=== PATIENT | male | born 1950 | race Caucasian/White ===

== ENCOUNTER 2017-05-11 23:26 | Inpatient (IN) | payer OTHER ==
[~2017-05-11] VITALS: Ht 167.6 cm; Wt 115.2 kg
[~2017-05-11 23:26] MED LIST: ALLOPURINOL300 MG PO; AMLODIPINE BESYL5 MG PO; CRESTOR20 MG PO; ECOTRIN325 MG PO; GLYBURIDE5 MG PO; HYDROCHLOROTHIA25 MG PO; LANTUS 10100 UNITS/ SC; LANTUS 3 M100 UNITS1 SC; LISINOPRIL40 MG PO; LOPRESSOR100 M1 PO; MECLIZINE HCL25 MG PO
[2017-05-12] VITALS (18 sets, daily range): BP systolic 85–127; BP diastolic 46–77
[2017-05-12 00:07] LABS: HEMATOCRIT 56.6 % (38.0-50.0); MCH 31.1 PG (29.0-34.0); MCHC 33.7 G/DL (30.0-36.0); MEAN PLAT.VOLUME 11.2 uM^3 (9.0-12.4); PLATELET COUNT 199 K/uL (156-360); RBC DIS.WIDTH-CV 13.8 % (11.8-14.6); RBC DIS.WIDTH-SD 46.7 % (39-53); RED BLOOD COUNT 6.15 M/uL (4.00-5.50)
[2017-05-12 00:18] LABS: CHLORIDE 105 mEq/L (99-109); SODIUM 146 mEq/L (136-147)
[2017-05-12 00:20] LABS: GLUCOSE 97 mg/dL (70-99)
[2017-05-12 00:21] LABS: ANION GAP 14 MEQ/L (2-14)
[2017-05-12 00:24] LABS: GFR ESTIMATE (CALCULATED) 54 mL/min/
[2017-05-12 00:25] LABS: UREA NITROGEN (BUN) 19 mg/dL (9-23)
[2017-05-12 00:29] LABS: TROP-I INTERPRETATION NEGATIVE; TROPONIN-I 0.01 ng/mL (0.0-0.30)
[2017-05-12] MEDS ORDERED: PREDNISONE20 MG PO (02:11)
[2017-05-12] MEDS ORDERED: KEFLEX500 MG PO (02:11)
[2017-05-12 05:11] LABS: BASE EXCESS 0.2 mEq/L (-3 to +3); BICARBONATE 25.4 mEq/L (22-26); CARBOXY HGB 1.8 % (0-5); METHEMOGLOBIN 1.3 % (0-1.5); PCO2 42 mm Hg (35-45); PO2 137 mm Hg (80-100); pH 7.39 (7.35-7.45)
[2017-05-12 05:12] LABS: COMMENTS - BLOOD GASES A+C+; DEVICE 840; FI02 60 %; MECHANICAL RATE 16 resp/min; MODE AC; PEEP 5 CM/H20; SITE LR; TIDAL VOLUME 500 ML; TOTAL RESP RATE 20 resp/min
[2017-05-12 09:46] LABS: POINT-OF-CARE METER ID UU13113731
[2017-05-12 10:09] LABS: METH RESISTANT S AUREUS PCR NEGATIVE (NEGATIVE); PROBE CHECK PASS; SPECIMEN PROCESSING CONTROL PASS
[2017-05-12 10:18] LABS: ADD MIUA? YES; BILIRUBIN NEGATIVE; BLOOD MODERATE; COLOR YELLOW ((YELLOW)); GLUCOSE (STRIP) 150; KETONES 5; LEUKOCYTES NEGATIVE; NITRITE NEGATIVE; PROTEIN (STRIP) >=500; SPECIFIC GRAVITY 1.035 (1.000-1.030); UROBILINOGEN 0.2 MG/DL (0.2-1.0)
[2017-05-12] MEDS ORDERED: AZITHROMYCIN250 MG PO (10:25)
[2017-05-12] MEDS ORDERED: ROSUVASTATIN CA20 MG PO (10:25)
[2017-05-12] MEDS ORDERED: BYSTOLIC10 MG PO (10:57)
[2017-05-12] MEDS ORDERED: ALLOPURINOL300 MG PO (10:58)
[2017-05-12] MEDS ORDERED: TRESIBA FL100 UNIT/1 SC (10:59)
[2017-05-12] MEDS ORDERED: ZYRTEC10 M2 PO (11:00)
[2017-05-12] MEDS ORDERED: ASPIR 8181 M1 PO (11:00)
[2017-05-12] MEDS ORDERED: DOXAZOSIN MESYLA2 MG PO (11:00)
[2017-05-12] MEDS ORDERED: GLIMEPIRIDE4 MG PO (11:01)
[2017-05-12] MEDS ORDERED: LOSARTAN POTASS50 MG PO (11:01)
[2017-05-12 11:02] LABS: EOSINOPHIL (%) 0.1 % (0-5); HEMATOCRIT 53.3 % (38.0-50.0); IMMATURE GRANULOCYTE (%) 0.2 % (0.0-0.7); INSTRUMENT ABS NEUTROPHIL CT 14.6 K/uL; LYMPHOCYTE COUNT 0.5 K/uL (1.0-2.8); MCH 31.4 PG (29.0-34.0); MONOCYTE (%) 6.7 % (3-12); MONOCYTE COUNT 1.1 K/uL (0-0.8); NEUTROPHIL (%) 89.7 % (45-76); NEUTROPHIL COUNT 14.6 K/uL (1.8-6.4); RBC DIS.WIDTH-CV 14.2 % (11.8-14.6); RBC DIS.WIDTH-SD 49.3 % (39-53); RED BLOOD COUNT 5.61 M/uL (4.00-5.50); WHITE BLOOD COUNT 16.3 K/uL (4.1-10.2)
[2017-05-12] MEDS ORDERED: LISINOPRIL40 MG PO (11:02)
[2017-05-12] MEDS ORDERED: HYDROCHLOROTHIA25 MG PO (11:02)
[2017-05-12 11:04] LABS: MEAN PLAT.VOLUME 11.4 uM^3 (9.0-12.4); PLATELET COUNT 174 K/uL (156-360)
[2017-05-12 11:25] LABS: ALKALINE PHOSPHATASE 58 IU/L (3-129); ANION GAP 11 MEQ/L (2-14); CHLORIDE 105 MEQ/L (99-109); GFR ESTIMATE (CALCULATED) 40 mL/min/; MAGNESIUM 1.8 mg/dl (1.3-2.7); POTASSIUM 4.1 MEQ/L (3.7-5.4); SAMPLE HEMOLYSIS CHECK 0; SAMPLE ICTERIC CHECK 0; SAMPLE LIPEMIA CHECK 0; SODIUM 141 MEQ/L (136-147); UREA NITROGEN (BUN) 25 mg/dL (9-23)
[2017-05-12 11:28] LABS: EPITHELIAL CELLS 1+ /HPF; RED BLOOD CELLS TNTC /HPF (0-5)
[2017-05-12 11:29] LABS: AMORPHOUS URATES CRYSTALS 2+; BACTERIA 2+ /HPF; CASTS NONE SEEN /LPF; CRYSTALS PRESENT; MUCUS 1+ /LPF; UCUL ADDED? YES
[2017-05-12 11:36] LABS: GLUCOSE 208 mg/dL (70-99)
[2017-05-12] MEDS ORDERED: TRULICITY1.5 MG/0.5 SC (13:57)
[2017-05-12 16:47] LABS: UR CREATININE CONCENTRATION 220.4 MG/DL
[2017-05-12 17:18] LABS: ANION GAP 10 MEQ/L (2-14); CHLORIDE 107 MEQ/L (99-109); GFR ESTIMATE (CALCULATED) 43 mL/min/; GLUCOSE 273 mg/dL (70-99); POTASSIUM 4.1 MEQ/L (3.7-5.4); SAMPLE HEMOLYSIS CHECK 0; SAMPLE ICTERIC CHECK 0; SAMPLE LIPEMIA CHECK 0; SODIUM 141 MEQ/L (136-147); UREA NITROGEN (BUN) 33 mg/dL (9-23)
[2017-05-12 17:43] LABS: Estimated Average Glucose 189 mg/dL (70-123); HEMOGLOBIN A1c (GLYCOHEMOGLOB) 8.2 % HGB (Below 5.7)
[2017-05-13] VITALS (23 sets, daily range): BP systolic 101–147; BP diastolic 54–80
[2017-05-13 00:45] LABS: EOSINOPHIL (%) 0 % (0-5); HEMATOCRIT 44.7 % (38.0-50.0); IMMATURE GRANULOCYTE (%) 0.4 % (0.0-0.7); IMMATURE GRANULOCYTE COUNT 0.1 K/uL; INSTRUMENT ABS NEUTROPHIL CT 11.2 K/uL; LYMPHOCYTE COUNT 0.7 K/uL (1.0-2.8); MCH 30.9 PG (29.0-34.0); MCHC 32.9 G/DL (30.0-36.0); MCV 94.1 FL (86-99); MEAN PLAT.VOLUME 11.1 uM^3 (9.0-12.4); MONOCYTE (%) 8.5 % (3-12); MONOCYTE COUNT 1.1 K/uL (0-0.8); NEUTROPHIL (%) 85.4 % (45-76); NEUTROPHIL COUNT 11.2 K/uL (1.8-6.4); PLATELET COUNT 148 K/uL (156-360); RBC DIS.WIDTH-CV 13.8 % (11.8-14.6); RBC DIS.WIDTH-SD 48.1 % (39-53); RED BLOOD COUNT 4.75 M/uL (4.00-5.50); WHITE BLOOD COUNT 13.1 K/uL (4.1-10.2)
[2017-05-13 00:46] LABS: CHLORIDE 112 mEq/L (99-109); MAGNESIUM 1.8 mg/dL (1.3-2.7); POTASSIUM 4.1 mEq/L (3.7-5.4); SODIUM 142 mEq/L (136-147)
[2017-05-13 00:48] LABS: GLUCOSE 212 mg/dL (70-99)
[2017-05-13 00:49] LABS: ANION GAP 8 MEQ/L (2-14)
[2017-05-13 00:52] LABS: GFR ESTIMATE (CALCULATED) 49 mL/min/; UREA NITROGEN (BUN) 37 mg/dL (9-23)
[2017-05-13 05:57] LABS: POINT-OF-CARE METER ID UU13113731
[2017-05-13 06:16] LABS: BASE EXCESS -0.2 mEq/L (-3 to +3); BICARBONATE 24.8 mEq/L (22-26); CARBOXY HGB 2.3 % (0-5); COMMENTS - BLOOD GASES C+; DEVICE VENT; FI02 40 %; METHEMOGLOBIN 1.7 % (0-1.5); MODE SPON; PCO2 41 mm Hg (35-45); PEEP 10 CM/H20; PO2 72 mm Hg (80-100); PRES. SUPPORT 10 CM/H2O; SITE LB; TOTAL RESP RATE 15 resp/min; pH 7.39 (7.35-7.45)
[2017-05-13 14:16] LABS: POINT-OF-CARE METER ID UU13113731
[2017-05-13 15:48] LABS: ANION GAP 6 MEQ/L (2-14); CHLORIDE 113 MEQ/L (99-109); GFR ESTIMATE (CALCULATED) 58 mL/min/; GLUCOSE 168 mg/dL (70-99); POTASSIUM 4.3 MEQ/L (3.7-5.4); SAMPLE HEMOLYSIS CHECK 0; SAMPLE ICTERIC CHECK 0; SAMPLE LIPEMIA CHECK 0; SODIUM 143 MEQ/L (136-147); UREA NITROGEN (BUN) 36 mg/dL (9-23)
[2017-05-13 17:41] LABS: POINT-OF-CARE METER ID UU13113731
[2017-05-13 21:42] LABS: POINT-OF-CARE METER ID UU14174217
[2017-05-14] VITALS (26 sets, daily range): BP systolic 118–207; BP diastolic 57–112
[2017-05-14 02:51] LABS: POINT-OF-CARE METER ID UU13113748
[2017-05-14 06:11] LABS: EOSINOPHIL (%) 0 % (0-5); HEMATOCRIT 47.3 % (38.0-50.0); IMMATURE GRANULOCYTE (%) 0.3 % (0.0-0.7); INSTRUMENT ABS NEUTROPHIL CT 8.1 K/uL; LYMPHOCYTE COUNT 0.5 K/uL (1.0-2.8); MCH 31.3 PG (29.0-34.0); MCHC 33.2 G/DL (30.0-36.0); MCV 94.4 FL (86-99); MEAN PLAT.VOLUME 11.4 uM^3 (9.0-12.4); MONOCYTE (%) 3.6 % (3-12); MONOCYTE COUNT 0.3 K/uL (0-0.8); NEUTROPHIL (%) 90.7 % (45-76); NEUTROPHIL COUNT 8.1 K/uL (1.8-6.4); PLATELET COUNT 180 K/uL (156-360); RBC DIS.WIDTH-CV 14.1 % (11.8-14.6); RBC DIS.WIDTH-SD 48.8 % (39-53); RED BLOOD COUNT 5.01 M/uL (4.00-5.50)
[2017-05-14 07:23] LABS: POINT-OF-CARE METER ID UU13113748
[2017-05-14 07:26] LABS: CHLORIDE 114 mEq/L (99-109); POTASSIUM 4.5 mEq/L (3.7-5.4); SODIUM 144 mEq/L (136-147)
[2017-05-14 07:30] LABS: ANION GAP 9 MEQ/L (2-14)
[2017-05-14 07:32] LABS: GFR ESTIMATE (CALCULATED) 58 mL/min/
[2017-05-14 07:33] LABS: UREA NITROGEN (BUN) 33 mg/dL (9-23)
[2017-05-14 07:35] LABS: URIC ACID 2.1 mg/dL (3.1-9.2)
[2017-05-14 07:38] LABS: GLUCOSE 260 mg/dL (70-99)
[2017-05-14 09:41] LABS: POINT-OF-CARE METER ID UU13113748
[2017-05-14 14:15] LABS: POINT-OF-CARE METER ID UU13113748
[2017-05-14] MEDS ORDERED: LOSARTAN POTASS50 MG PO (15:29)
[2017-05-14] MEDS ORDERED: MONTELUKAST SOD10 MG PO (15:30)
[2017-05-14] MEDS ORDERED: METOPROLOL TAR100 MG PO (15:30)
[2017-05-14] MEDS ORDERED: CIALIS20 MG PO (15:30)
[2017-05-14] MEDS ORDERED: AMLODIPINE BESYL5 MG PO (15:31)
[2017-05-14 17:39] LABS: POINT-OF-CARE METER ID UU13113748
[2017-05-14 21:34] LABS: POINT-OF-CARE METER ID UU13113748
[2017-05-14 23:11] LABS: POINT-OF-CARE METER ID UU13113748
[2017-05-15] VITALS (24 sets, daily range): BP systolic 100–168; BP diastolic 46–83
[2017-05-15 02:14] LABS: POINT-OF-CARE METER ID UU13113748
[2017-05-15 06:01] LABS: HEMATOCRIT 47.2 % (38.0-50.0); MCH 30.9 PG (29.0-34.0); MCHC 32.8 G/DL (30.0-36.0); MCV 94.2 FL (86-99); MEAN PLAT.VOLUME 11.1 uM^3 (9.0-12.4); PLATELET COUNT 194 K/uL (156-360); RBC DIS.WIDTH-CV 14.2 % (11.8-14.6); RBC DIS.WIDTH-SD 49.6 % (39-53); RED BLOOD COUNT 5.01 M/uL (4.00-5.50); WHITE BLOOD COUNT 8.7 K/uL (4.1-10.2)
[2017-05-15 06:27] LABS: ANION GAP 7 MEQ/L (2-14); CHLORIDE 120 MEQ/L (99-109); GFR ESTIMATE (CALCULATED) > 59 mL/min/; POTASSIUM 4.1 MEQ/L (3.7-5.4); SAMPLE HEMOLYSIS CHECK 0; SAMPLE ICTERIC CHECK 0; SAMPLE LIPEMIA CHECK 0; UREA NITROGEN (BUN) 27 mg/dL (9-23)
[2017-05-15 06:30] LABS: GLUCOSE 58 mg/dL (70-99); SODIUM 152 MEQ/L (136-147)
[2017-05-15 09:56] LABS: POINT-OF-CARE METER ID UU13113748; POINT-OF-CARE USER ID 612031313
[2017-05-15 14:58] LABS: POINT-OF-CARE METER ID UU13113748; POINT-OF-CARE USER ID 612031313
[2017-05-15 17:54] LABS: POINT-OF-CARE METER ID UU13113748; POINT-OF-CARE USER ID 612031313
[2017-05-15 20:53] LABS: POINT-OF-CARE METER ID UU13113748
[2017-05-15 22:22] LABS: POINT-OF-CARE METER ID UU13113748
[2017-05-16] VITALS (22 sets, daily range): BP systolic 114–171; BP diastolic 55–79
[2017-05-16 02:31] LABS: POINT-OF-CARE METER ID UU13113748
[2017-05-16 06:23] LABS: POINT-OF-CARE METER ID UU13113748
[2017-05-16 10:31] LABS: POINT-OF-CARE METER ID UU13113748; POINT-OF-CARE USER ID 612031313
[2017-05-16 11:27] LABS: ANION GAP 8 MEQ/L (2-14); CHLORIDE 108 MEQ/L (99-109); GFR ESTIMATE (CALCULATED) > 59 mL/min/; GLUCOSE 257 mg/dL (70-99); POTASSIUM 4.2 MEQ/L (3.7-5.4); SAMPLE HEMOLYSIS CHECK 0; SAMPLE ICTERIC CHECK 0; SAMPLE LIPEMIA CHECK 0; SODIUM 142 MEQ/L (136-147); UREA NITROGEN (BUN) 27 mg/dL (9-23)
[2017-05-16 18:02] LABS: POINT-OF-CARE METER ID UU13113748; POINT-OF-CARE USER ID 612031313
[2017-05-16 21:34] LABS: POINT-OF-CARE METER ID UU13113748
[2017-05-16 22:22] LABS: POINT-OF-CARE METER ID UU13113748
[2017-05-17 00:03] VITALS: BP 178/84
[2017-05-17 03:41] VITALS: BP 144/65
[2017-05-17 05:51] LABS: ANION GAP 10 MEQ/L (2-14); CHLORIDE 108 MEQ/L (99-109); GFR ESTIMATE (CALCULATED) > 59 mL/min/; GLUCOSE 202 mg/dL (70-99); POTASSIUM 3.8 MEQ/L (3.7-5.4); SAMPLE HEMOLYSIS CHECK 0; SAMPLE ICTERIC CHECK 0; SAMPLE LIPEMIA CHECK 0; SODIUM 140 MEQ/L (136-147); UREA NITROGEN (BUN) 29 mg/dL (9-23)
[2017-05-17 07:40] VITALS: BP 174/84
[2017-05-17 08:19] LABS: POINT-OF-CARE METER ID UU13113781; POINT-OF-CARE USER ID ENVKC36
[2017-05-17] MEDS ORDERED: PREDNISONE20 MG PO (11:04)
[2017-05-17 11:44] LABS: POINT-OF-CARE USER ID ENVKC36
== END 2017-05-17 12:13 | disposition home or self-care (01) | DRG 208 ==
LOC: EME 23:26 → EDOF 05-12 05:08 → 4WEST 05-12 05:08 → 4EAST 05-16 23:48
PROVIDERS: Emergency Medicine; Internal Medicine; Internal Medicine Critical Care Medicine; Internal Medicine Nephrology; Internal Medicine Pulmonary Disease; Obstetrics & Gynecology
PROC: 5A1945Z Respiratory Ventilation, 24-96 Consecutive Hours (ICD-10-PCS; principal; 2017-05-12)
PROC: 0BH17EZ Insertion of Endotracheal Airway into Trachea, Via Natural or Artificial Opening (ICD-10-PCS; principal; 2017-05-12)
PROC: 0CJS8ZZ Inspection of Larynx, Via Natural or Artificial Opening Endoscopic (ICD-10-PCS; 2017-05-14)
PROC: 5A09357 Assistance with Respiratory Ventilation, Less than 24 Consecutive Hours, Continuous Positive Airway Pressure (ICD-10-PCS; 2017-05-15)
DX: J96.01 Acute respiratory failure with hypoxia (principal); N17.9 Acute kidney failure, unspecified; T46.4X5A Adverse effect of angiotensin-converting-enzyme inhibitors, initial encounter; T46.5X5A Adverse effect of other antihypertensive drugs, initial encounter; T50.2X5A Adverse effect of carbonic-anhydrase inhibitors, benzothiadiazides and other diuretics, initial encounter; J04.0 Acute laryngitis; J05.11 Acute epiglottitis with obstruction; J04.11 Acute tracheitis with obstruction; E86.1 Hypovolemia; E87.0 Hyperosmolality and hypernatremia; I48.91 Unspecified atrial fibrillation; I12.9 Hypertensive chronic kidney disease with stage 1 through stage 4 chronic kidney disease, or unspecified chronic kidney disease; N18.3 Chronic kidney disease, stage 3 (moderate); I25.10 Atherosclerotic heart disease of native coronary artery without angina pectoris; E11.22 Type 2 diabetes mellitus with diabetic chronic kidney disease; J45.909 Unspecified asthma, uncomplicated; M10.9 Gout, unspecified; N28.0 Ischemia and infarction of kidney; E66.9 Obesity, unspecified; Z68.41 Body mass index [BMI] 40.0-44.9, adult; I25.2 Old myocardial infarction; Z95.1 Presence of aortocoronary bypass graft; Z87.442 Personal history of urinary calculi; Z79.4 Long term (current) use of insulin
CPT/HCPCS: 36600; 70491; 71010; 71020; 76770; 80048; 80048 91; 80053; 81003; 82436; 82570; 82803; 82948; 83036; 83605; 83735; 83880; 83935; 84100; 84133; 84156; 84300; 84484; 84550; 85025; 85027; 87040; 87070; 87077; 87086; 87181; 87185; 87205; 87641; 93005; 93306; 94002; 94003; 94640; 94640 76; 94660; 94799; 97530 GO; 99281; 99285; J0295; J0360; J1100; J1650; J1815; J2060; J2250; J2543; J2704; J3010; J7030; J7050; J7070; S0028

== ENCOUNTER 2017-05-21 10:00 | Inpatient (IN) | payer OTHER ==
[~2017-05-21] VITALS: Ht 170.2 cm; Wt 115.3 kg
[~2017-05-21 10:00] MED LIST changes: +ASPIR 8181 M1 PO; +AZITHROMYCIN250 MG PO; +BYSTOLIC10 MG PO; +CIALIS20 MG PO; +DOXAZOSIN MESYLA2 MG PO; +GLIMEPIRIDE4 MG PO; +KEFLEX500 MG PO; +LOSARTAN POTASS50 MG PO; +METOPROLOL TAR100 MG PO; +MONTELUKAST SOD10 MG PO; +PREDNISONE20 MG PO; +ROSUVASTATIN CA20 MG PO; +TRESIBA FL100 UNIT/1 SC; +TRULICITY1.5 MG/0.5 SC; +ZYRTEC10 M2 PO
[2017-05-21 10:45] LABS: EOSINOPHIL (%) 3.6 % (0-5); EOSINOPHIL COUNT 0.4 K/uL (0-0.3); HEMATOCRIT 51.3 % (38.0-50.0); IMMATURE GRANULOCYTE (%) 0.6 % (0.0-0.7); IMMATURE GRANULOCYTE COUNT 0.1 K/uL; INSTRUMENT ABS NEUTROPHIL CT 8.6 K/uL; LYMPHOCYTE COUNT 1.2 K/uL (1.0-2.8); MCH 30.5 PG (29.0-34.0); MCHC 34.1 G/DL (30.0-36.0); MCV 89.5 FL (86-99); MEAN PLAT.VOLUME 10.7 uM^3 (9.0-12.4); NEUTROPHIL (%) 75.8 % (45-76); NEUTROPHIL COUNT 8.6 K/uL (1.8-6.4); PLATELET COUNT 233 K/uL (156-360); RBC DIS.WIDTH-CV 13.1 % (11.8-14.6); RBC DIS.WIDTH-SD 42.6 % (39-53); RED BLOOD COUNT 5.73 M/uL (4.00-5.50); WHITE BLOOD COUNT 11.4 K/uL (4.1-10.2)
[2017-05-21 10:50] LABS: CHLORIDE 104 mEq/L (99-109); POTASSIUM 3.5 mEq/L (3.7-5.4); SODIUM 141 mEq/L (136-147)
[2017-05-21 10:51] LABS: GLUCOSE 134 mg/dL (70-99)
[2017-05-21 10:53] LABS: ANION GAP 8 MEQ/L (2-14)
[2017-05-21 10:55] LABS: GFR ESTIMATE (CALCULATED) > 59 mL/min/
[2017-05-21 10:56] LABS: UREA NITROGEN (BUN) 24 mg/dL (9-23)
[2017-05-21 11:02] LABS: TROP-I INTERPRETATION NEGATIVE; TROPONIN-I 0.13 ng/mL (0.0-0.30)
[2017-05-21] MEDS ORDERED: OMEPRAZOLE40 M1 PO (15:29)
[2017-05-21] MEDS ORDERED: CIALIS20 MG PO (15:29)
[2017-05-21 19:33] VITALS: BP 157/78
[2017-05-21 22:40] LABS: POINT-OF-CARE METER ID UU13113781; POINT-OF-CARE USER ID STWHLR41
[2017-05-22] VITALS (7 sets, daily range): BP systolic 119–174; BP diastolic 70–86
[2017-05-22 04:21] LABS: HEMATOCRIT 47.4 % (38.0-50.0); MCH 30.7 PG (29.0-34.0); MCHC 34.6 G/DL (30.0-36.0); MCV 88.8 FL (86-99); MEAN PLAT.VOLUME 11.1 uM^3 (9.0-12.4); PLATELET COUNT 205 K/uL (156-360); RBC DIS.WIDTH-CV 13.2 % (11.8-14.6); RBC DIS.WIDTH-SD 42.4 % (39-53); RED BLOOD COUNT 5.34 M/uL (4.00-5.50); WHITE BLOOD COUNT 13.3 K/uL (4.1-10.2)
[2017-05-22 04:31] LABS: CHLORIDE 110 mEq/L (99-109); SODIUM 142 mEq/L (136-147)
[2017-05-22 04:33] LABS: GLUCOSE 152 mg/dL (70-99)
[2017-05-22 04:35] LABS: ANION GAP 8 MEQ/L (2-14)
[2017-05-22 04:37] LABS: GFR ESTIMATE (CALCULATED) > 59 mL/min/
[2017-05-22 04:38] LABS: UREA NITROGEN (BUN) 18 mg/dL (9-23)
[2017-05-22 07:11] LABS: POINT-OF-CARE METER ID UU13113698
[2017-05-22 11:54] LABS: POINT-OF-CARE METER ID UU14174216
[2017-05-22 16:35] LABS: POINT-OF-CARE METER ID UU14174216
[2017-05-22 21:01] LABS: POINT-OF-CARE METER ID UU14174216
[2017-05-23 03:00] VITALS: BP 157/70
[2017-05-23 07:56] VITALS: BP 172/79
[2017-05-23] MEDS ORDERED: AUGMENTIN875 MG PO (10:44)
[2017-05-23] MEDS ORDERED: MEDROL DOSEPAK4 MG PO (10:46)
== END 2017-05-23 11:22 | disposition home or self-care (01) | DRG 153 ==
LOC: EME 10:00 → EDOF 15:09 → 4EAST 15:09
PROVIDERS: Emergency Medicine; Hospitalist; Internal Medicine
PROC: 0CJS8ZZ Inspection of Larynx, Via Natural or Artificial Opening Endoscopic (ICD-10-PCS; principal; 2017-05-22)
DX: J39.0 Retropharyngeal and parapharyngeal abscess (principal); E11.22 Type 2 diabetes mellitus with diabetic chronic kidney disease; N18.3 Chronic kidney disease, stage 3 (moderate); I10 Essential (primary) hypertension; J36 Peritonsillar abscess; E11.9 Type 2 diabetes mellitus without complications; R13.10 Dysphagia, unspecified; M10.9 Gout, unspecified; J45.909 Unspecified asthma, uncomplicated; Z87.442 Personal history of urinary calculi; Z95.1 Presence of aortocoronary bypass graft; J04.0 Acute laryngitis; R49.0 Dysphonia; I25.10 Atherosclerotic heart disease of native coronary artery without angina pectoris; J34.2 Deviated nasal septum; J34.3 Hypertrophy of nasal turbinates; Z79.4 Long term (current) use of insulin; I12.9 Hypertensive chronic kidney disease with stage 1 through stage 4 chronic kidney disease, or unspecified chronic kidney disease
CPT/HCPCS: 70491; 71020; 80048; 80202; 82948; 84484; 85025; 85027; 87040; 93005; 99281; 99285; C9113; J0295; J0360; J1100; J1815; J3370; J7030; J7050